=== PATIENT | female | born 1990 | race African-American/Black ===

== ENCOUNTER → 2018-04-13 11:35 | Observation (INO) ==
[2018-04-13 11:22] LABS: Amphetamine Screen,Urine Negative ng/mL (Cutoff=1000); Barbiturate Screen,Urine Negative ng/mL (Cutoff=200); Benzodiazepines Screen,Urine Negative ng/mL (Cutoff=200); Cannabinoid Screen,Urine Negative ng/mL (Cutoff = 50); Cocaine Screen,Urine Negative ng/mL (Cutoff= 300); Opiate Screen,Urine Negative ng/mL (Cutoff=300); Phencyclidine Screen,Urine Negative ng/mL (Cutoff=25)
--- NOTE | 2018-04-13 13:03 | Discharge Summary ---
Date of Encounter: 04/13/18 Time of Encounter: 11:25 - Discharge Diagnosis (1) 31 weeks gestation of Priority: Primary Status: Acute Comments: admitted for observation (2) Decreased movement Priority: Secondary Status: Acute Comments: anterior placenta After arriving to labor and delivery patient reported feeling movement Qualifiers: Fetus number: single or unspecified fetus Trimester: third trimester Qualified Code(s): O36.8130 - Decreased movements, third trimester, not applicable or unspecified (3) NST (non-stress test) reactive on surveillance Priority: Secondary Status: Acute Comments: FHR baseline 130 bpm moderate variability +15x15 accels no decels noted. Cat. 1 tracing. - Discharge Medications Home Medications: Prenat Vit Comb.10/Iron/FA/Dha [Vitafol-Ob+Dha Combo Pack] 1 each PO DAILY #90 combo..pkg 10/06/17 [Rx] Allergies/Adverse Reactions: 3 Allergy/AdvReac Type Severity Reaction Status Date / Time No Known Allergies Allergy Verified 04/13/18 10:26 Data Procedures and tests throughout hospitalization: Laboratory Tests 04/13/18 10:36 Urine Opiates Screen Negative Ur Barbiturates Screen Negative Ur Phencyclidine Scrn Negative Ur Amphetamines Screen Negative U Benzodiazepines Scrn Negative Urine Cocaine Screen Negative U Marijuana (THC) Screen Negative Ur Drug Screen Interp See Below Labs on day of discharge: Labs from last 24 hours 04/13/18 10:36 Urine Opiates Screen Negative Ur Barbiturates Screen Negative Ur Phencyclidine Scrn Negative Ur Amphetamines Screen Negative U Benzodiazepines Scrn Negative Urine Cocaine Screen Negative U Marijuana (THC) Screen Negative Ur Drug Screen Interp See Below Date of admission: 04/13/18 10:05 Primary care physician: Chucky Potter MD Discharging clinician: Fernanda Mixon Anticipated date of discharge: 04/13/18 - Patient Status Disposition: Home, Self-Care Condition: Good Functional capacity at discharge: independent ambulation - Discharge Instructions Follow Up With: Chucky Potter MD [Primary Care Provider] - Fernanda Mixon CNM [Non-Partnered Physician] - - Diet and Activity Activity: increase activity as tolerated Diet: regular diet Hospital Course ENGINEERING AIDE Hospital course: Patient is a 27 y/o at 31w5d presents to labor and delivery with complaints of decreased movement. Patient denies LOF, VB or contractions. Patient denies any complications with but does report she was told her placenta is in the front. Patient reports feeling movement while on the monitor. We discussed interventions to help baby move but encouraged patient to come in for observation for any concerns. Time Attestation: Total time spent providing and/or coordinating discharge services: Time Spent: Less than 30 minutes Exam - Constitutional General appearance IM: A&O X 3, pleasant, answers questions appropriately - Respiratory Respiratory exam: Present: CTAB - Cardiovascular Cardiovascular exam IM: Present: RRR, +S1, +S2 - GI/Abdominal GI/Abdominal exam IM: normal bowel sounds - Extremities Exam Extremities exam IM: Present: full ROM, normal capillary refill, normal inspection - Neurological Exam Neurological exam: alert, oriented X3, reflexes normal - VTE Reasons for not Prescribing Prophylaxis: Treatment not Indicated - Low risk for VTE
== END | disposition home or self-care (01) ==
LOC: 1NENULAB
PROVIDERS: ADMIT Advanced Practice Midwife; ATTEND Advanced Practice Midwife

== ENCOUNTER 2018-05-19 19:26 | Observation (INO) ==
[2018-05-19 20:17] LABS: Amphetamine Screen,Urine Negative ng/mL (Cutoff=1000); Barbiturate Screen,Urine Negative ng/mL (Cutoff=200); Benzodiazepines Screen,Urine Negative ng/mL (Cutoff=200); Cannabinoid Screen,Urine Negative ng/mL (Cutoff = 50); Cocaine Screen,Urine Negative ng/mL (Cutoff= 300); Opiate Screen,Urine Negative ng/mL (Cutoff=300); Phencyclidine Screen,Urine Negative ng/mL (Cutoff=25)
== END 2018-05-19 21:11 | disposition home or self-care (01) ==
LOC: 1NENULAB
PROVIDERS: ADMIT Advanced Practice Midwife; ATTEND Advanced Practice Midwife

== ENCOUNTER 2018-06-03 19:58 | Inpatient (IN) ==
[~2018-06-03 19:58] MED LIST: *HR* Nalbuphine 10 MG/ML AMPUL IVP PRN; Famotidine 20 MG/2 ML VIAL IVP PRN; Naloxone 0.4 MG/ML INJ IVP PRN; Ondansetron 4 MG/2 ML VIAL IVP PRN
[2018-06-03] MEDS ORDERED: Ringers Solution, Lactated 1,000 ML IVC SCH (20:00)
--- NOTE | 2018-06-03 20:04 | OB/GYN History & Physical ---
Date of Encounter: 06/03/18 Time of Encounter: 20:00 Assessment and Plan (1) 39 weeks gestation of Current visit: Yes Status: Acute admitted for delivery (2) Non-reassuring heart tones complicating , antepartum Current visit: Yes Status: Acute Admitted for delivery at this time Consult with Dr. Daryb completed: Patient care management discussed. History of Present Illness Chief complaint: contractions HPI: Ms. Sparks is a 28 year old female at 39 weeks gestation presents to labor and delivery with complaints of contractions that started earlier this morning and have progressively gotten stronger. Patient reports good movement. Patient denies LOF or VB. during labor evaluation patient had a late decel Discussed patient with Dr. Darby and decision was made to admit patient for delivery. An IV was quickly started, SVE with + scalp stim and O2 mask applied. Patient placed in left lateral position. Blood type: O+ Rubella:immune Hep B: Non-reactive GBS: Negative Past Med Surg Social Fam HX - Past Medical History Source: patient Medical history: no medical history Psychiatric history: no psych history - Past Surgical History Additional surgical history: meniscus repaired years ago, wisdom teeth removal - Social History Smoking Status: Never smoker Smokeless Tobacco Status: No Alcohol use: none Drug use: none Current living situation: Home - Independent Activity Level: Independent ambulation Recent Out of Country Travel Within the Last 8 Weeks: No Exposure or Possible Exposure to Illness During Travel: No - Family History Mother Adopted: No Living Status: Still Living Hx Family Cardiac Disorders: No Hx Family Respiratory Disorders: No Hx Family Cancer: No Hx Family GI Disorders: No Hx Family Genitourinary Disorders: No Hx Family Endocrine Disorder: No Hx Family Musculoskeletal Disorders: No Hx Family Neuromuscular Disorders: No Hx Family Neurologic Disorders: No Hx Family HEENT Disorders: No Hx Family Autoimmune Disorders: No Hx Family Reproductive Disorders: No Hx Family Psychosocial Disorders: No Hx Family Medical Disorders: No Obstetrical History - Pregnancies : 1 Para: 0 Term: 0 : 0 Ab's: 0 Livin Medications and Allergies Prenat Vit Comb.10/Iron/FA/Dha [Vitafol-Ob+Dha Combo Pack] 1 each PO DAILY #90 combo..pkg 10/06/17 [Rx] Allergy/AdvReac Type Severity Reaction Status Date / Time No Known Allergies Allergy Verified 04/13/18 10:26 Review of System OB - Constitutional Constitutional ROS IM: no chills, no fever(s), no headache(s) - Cardiovascular Cardiovascular: no chest pain, no palpitations, no pedal edema, no rapid heart rate, no syncope - Gastrointestinal Gastrointestinal: no abdominal pain, no diarrhea, no heartburn, no nausea, no vomiting - Genitourinary Genitourinary: no abnormal vaginal bleeding, no dysuria, no flank pain, no urinary frequency, no urinary hesitancy, no urinary urgency, no vaginal discharge, no vaginal odor, no vaginal pruritis Exam - Constitutional Constitutional: well developed, well nourished, average body habitus - HEENT HEENT: Normocephaly, Mucus Membranes Moist - Neck Neck exam: full ROM, supple - Lungs Respiratory exam: CTAB - Cardiovascular Cardiovascular exam: RRR, +S1, +S2 - Abdomen Abdomen: Present: bowel sounds normal, gravid, non tender - Extremities Extremities exam: full ROM, normal inspection Deep Tendon Reflex Grade: 2+ Normal - Cervix Dilation: 3 Effacement: 80 Station: -1 - Uterus Uterus exam: Present: normal size, normal contour - Anus/Rectum Anus/Rectum: Present: normal perianal skin - Comments Comments: FHR 125 bpm moderate variability + 15x15 accels late decels noted that resolved with intrauterine resuscitation. Contractions 2-3.[address] Darby aware of EFM tracing. POC care discussed at this time. Results All other labs normal. - VTE Reasons for not Prescribing Prophylaxis: Treatment not Indicated - Low risk for VTE
[2018-06-03 20:18] LABS: Hematocrit 36.9 % (35.3-44.9); Hemoglobin 12.8 g/dL (11.5-15.4); Immature Granulocytes % 0.3 % (0-4); Lymphocytes % 20.6 %; Mean Corpuscular HGB Conc 34.7 g/dL (31.6-35.5); Mean Corpuscular Hemoglobin 29.9 pg (28.0-33.3); Mean Corpuscular Volume 86.2 fL (83.0-100.0); Monocytes % 4.7 %; Platelet Count 260 K/mcL (140-400); Red Blood Count 4.28 M/mcL (3.82-4.97); Red Cell Distribution Width 14.2 % (11.5-14.5); Segmented Neutrophils % 73.7 %
[2018-06-03 20:19] LABS: Basophils % 0.3 %; Eosinophils # 0.1 K/mcL (0.0-0.6); Eosinophils % 0.4 %; Lymphocytes # 2.3 K/mcL (0.6-4.6); Monocytes # 0.5 K/mcL (0.0-1.3); Neutrophils # 8.4 K/mcL (1.6-8.9)
[2018-06-03] MEDS ORDERED: Bupivacaine-MPF 0.25% 10 ML VIAL ONE (20:57)
[2018-06-03] MEDS ORDERED: *HR* FentaNYL (PF) 100 MCG/2 ML VIAL ONE ×2 (20:57→21:35)
[2018-06-03] MEDS ORDERED: Epidural Premix (fent/bupiv) 110 ML EP SCH (21:00)
--- NOTE | 2018-06-03 21:01 | OB Labor Progress Note ---
Date of Encounter: 06/03/18 Time of Encounter: 20:58 Labor Progress Note - Subjective Subjective: Patient rates pain 10/10, waiting on epidural placement. IV fluids infusing. - Cervix Cervix: 4/90/0 - Heart Tones Heart Tones: 130 bpm moderate amount of variability no accels noted at this time. Prolonged decel noted. - [place]: 1-3 min apart - Interventions Interventions: SVE, AROM moderate amount of clear fluid noted. FSE placed without difficulty. Patient tolerated well. - Plan Plan: Dr. Darby updated on EFM tracing and interventions. No new orders or recommendations at this time. Anesthesia at bedside for epidural placement
[2018-06-03] MEDS ORDERED: Ketamine *HR* 500 MG/10 ML MDV ONE (21:36)
[2018-06-03] MEDS ORDERED: Dexamethasone 4 MG/ML VIAL ONE (21:45)
[2018-06-03] MEDS ORDERED: Ondansetron 4 MG/2 ML VIAL ONE (21:45)
[2018-06-03] MEDS ORDERED: *HR* Morphine Sulfate/PF 10 MG/10 ML AMPUL ONE (21:47)
--- NOTE | 2018-06-03 22:01 | Anesthesia Procedures ---
Date of Encounter: 06/03/18 Time of Encounter: 20:59 (lala end 2117) Procedures: Anesthesia - Epidural/Spinal Patient ID/Chart reviewed: Yes Patient examined: Yes OB Eval: Gestational age: 39 OB Eval: : 1 OB Eval: Hx Para: 0 OB Eval: Dilated at (cm): 4 OB Eval: Contractions: Non-stressed pattern Consent Obtained: Yes Site Prep: Aseptic Technique, Sterile prep and drape, Povidone-Iodine 1% Patient position: upright Amount of Local Anesthetic used: 3 Touhy Needle Gauge: 18 Touhy Needle Depth (cm): 5 Catheter Depth at Skin (cm): 8 Test Dose (1.5% Lido + Epi): Volume given (mls): 3 Test Dose Result: Negative Loading Dose: 0.25% Marcaine (mls): 8 Loading Dose: Fentanyl (mcg): 100 Loading Dose Administered: Thru Catheter Infusion Rate (mls/hr): 14 Interspace Used: L4-L5 Loss of Resistance ([place]): Yes Blood: No CSF: No Paresthesia: No Vitals + FHT's: Epidural placed with ease VSS FHTS see nursing notes.
--- NOTE | 2018-06-03 22:06 | Anesthesia Evaluation PreOp ---
Date of Encounter: 06/03/18 Time of Encounter: 20:59 - Past History Planned Operation: lala Cardiac History: Denies any Significant Hx Pulmonary History: Denies Any Significant HX PALLET SORTER History: Denies Any Significant HX Other Medical History: Denies Any Significant HX Anesthesia History: No Prior Anesthetic Complications : Yes Test: Positive Alcohol Use: none Drug use: none Medications and Allergies Prenat Vit Comb.10/Iron/FA/Dha [Vitafol-Ob+Dha Combo Pack] 1 each PO DAILY #90 combo..pkg 10/06/17 [Rx] Allergy/AdvReac Type Severity Reaction Status Date / Time No Known Allergies Allergy Verified 06/03/18 20:30 - Meds/Allergy Pre-op Review Medications Reviewed: Yes Allergies Reviewed: Yes Beta Blockers on Current Med List: No Anesthesia Results - Labs 06/03/18 19:59 Anesthesia Exam - HEENT Pupil (Motor): Pupils equal Mallampati: II Teeth: Normal Oral Opening: Greater than 3 - PALLET SORTER LOC: Oriented PALLET SORTER Motor: Normal RUE, Normal LUE, Normal RLE, Normal LLE, Normal Face PALLET SORTER Sensory: Normal: RUE, LUE, RLE, LLE, Face - Cardiac Rhythm: Regular Murmur: None JVD: No Carotid Bruit: No - Pulmonary Breath Sounds: bilateral Clear Respiratory Effort: Symmetrical Anesthesia Assess/Plan ASA Score: 2 Modified [place] Scale for Level of Consciousness: Cooperative, oriented, and tranquil Anesthetic Plan: Regional Autologous Blood: No Monitoring Plan: Standard Monitors
[2018-06-03] MEDS ORDERED: *HR* Morphine 2 MG/ML SYRINGE IVP PRN (22:08)
[2018-06-03] MEDS ORDERED: *HR* Meperidine 25 MG/ML SYRINGE IVP PRN (22:08)
[2018-06-03] MEDS ORDERED: Acetaminophen IV 1,000 MG/100 ML INFUS..BTL IVPB ONE (22:08)
--- NOTE | 2018-06-03 22:11 | Event Note ---
Date of Encounter: 06/03/18 Time of Encounter: 21:23 FHR decel noted after epidural placement, anesthesia still at bedside. RN placing coreas catheter. SVE /-1. Dr. Darby called to come to L&D for for Emergent section. Patient educated on reason for primary c/s and transfer of care to Physician for delivery at this time.
[2018-06-03] MEDS ORDERED: *HR* Oxytocin 10 UNIT/ML VIAL IM ONE (22:13)
[2018-06-03] MEDS ORDERED: Oxytocin 20 units/ LR 1000 mL 20 UNIT/1,000 ML BAG IVC ONE (22:17)
[2018-06-03] MEDS ORDERED: Ringers Solution, Lactated 2,000 ML ONE (22:18)
--- NOTE | 2018-06-03 22:19 | OB/GYN Procedure Note ---
Section - Date of procedure: 06/03/18 Preop diagnosis: other (recurrent late decels remote from delivery) Post-op diagnosis: same Procedure: primary low transverse Surgeon: Seth Bone Blood Loss: 150 Was there an assistant chief nursing officer present: Yes Grants Analyst: Iman Lea Anesthesia Type: Epidural section complications: none Disposition: L&D Recovery Room Specimens: Placenta, Cord segment, Cord blood - Narrative Narrative: The patient was brought to the operating room with satisfactory epidural anesthesia. The abdomen was prepped with betadine and draped in a sterile fashion. A Pfannenstiel incision was made and carried sharply down to the level of fascia. The fascia was incised transversely. At this point, the patient started complaining of pain so I stopped and Anesthesia had to sedate her before I continued. The fascia was dissected away from the underlying rectus muscles. With sharp and blunt dissection, the rectus muscles were divided in the midline. The peritoneum was entered bluntly. The bladder retractor was placed to protect the bladder. The lower uterine segment was entered sharply with a scalpel. The incision was manually extended. The 's head was pulled up and delivered as were the shoulders and body. The mouth and oropharynx were suctioned. The cord was clamped and cut. The was passed off to the waiting high school librarian in satisfactory condition. APGARS 8/9. Weight 2137g, nuchal cord x 1, 3VC. The placenta was extracted completely and found to be intact. The uterus was explored and found to be empty. The uterus was delivered through the abdominal incision and massaged vigorously. Intravenous Pitocin was administered. Clamps were placed about the margins of the uterine incision, which was closed primar faiza with a running locking stitch of 0 Vicryl with adequate hemostasis. Secondary running locking stitch was placed for extra strength to the wound. The uterus was returned to its proper anatomic position in the abdomen. The fascia was closed with a simple running stitch of 0 vicryl. The subcutaneous tissue was closed with 3-0 vicryl. The skin was closed with running subcuticular stitch of 4-0 vicryl. Uterus was expressed of its contents. EBL 150. Patient was brought to the recovery room in satisfactory condition.
[2018-06-04] MEDS ORDERED: Oxytocin 20 units/ LR 1000 mL 20 UNIT/1,000 ML BAG IVC SCH (01:00)
[2018-06-04] MEDS ORDERED: Sennosides 8.6 MG TABLET PO PRN (01:00)
[2018-06-04] MEDS ORDERED: *HR* HYDROmorphone 20 MG/20 ML PCA IVC PRN (01:00)
[2018-06-04] MEDS ORDERED: Metoclopramide 10 MG/2 ML VIAL IVP PRN (01:00)
[2018-06-04] MEDS ORDERED: Ondansetron 4 MG/2 ML VIAL IVP PRN (01:00)
[2018-06-04] MEDS ORDERED: Simethicone 80 MG TAB.CHEW PO PRN (01:00)
[2018-06-04] MEDS: Prenatal Vit/FA 1 EACH TABLET PO SCH (08:02)
--- NOTE | 2018-06-04 08:49 | OB/GYN Progress Note ---
Date of Encounter: 06/04/18 Time of Encounter: 08:46 - Assessment and Plan (1) Status post delivery Current Visit: Yes Status: Acute Meeting milestones for 14 hrs post op. Will discontinue INSTRUCTOR NURSE and switch to oral Percocet Coreas discontinued this AM. Pain well controlled at this time. Anticipate discharge tomorrow afternoon/evening. (2) Breast feeding status of mother Current Visit: Yes Status: Acute support as needed. Subjective - Subjective Principal diagnosis: Status post delivery Interval history: Patient is doing well this morning. States she is tired but otherwise tolerating pain well. Coreas discontinued this AM and no void at this time. She states b reastfeeding is going well. Discussed with patient plan to discontinue INSTRUCTOR NURSE and begin oral pain medications and she is agreeable to this plan. Patient reports: appetite normal, pain well controlled, other (coreas discontinued this AM. No void yet.) [place]: doing well, nursing well Objective - Vital Signs Latest vital signs: Vital Signs Temp Pulse Resp BP Pulse Ox 06/04/18 07:47 98.4 F 89 18 107/64 97 06/04/18 04:00 98 F 87 14 121/68 97 06/04/18 02:00 98.5 F 89 14 105/52 96 06/04/18 01:30 98.5 F 98 16 118/74 96 06/04/18 00:55 98.7 F 88 16 117/73 97 Intake and Output 06/03/18 06/04/18 06/04/18 23:59 07:59 15:59 Output Total 400 / 400 Balance -400 / -400 Output: Catheter 400 / 400 Other: Weight 92.079 kg 90.7 kg Patient Weight 06/04/18 23:59 Weight 90.7 kg - Exam Lungs: bilateral: normal Chest: Normal S1, Normal S2 Extremities: Present: normal Abdomen: Present: normal appearance, soft Incision: Present: dressed Uterus: Present: normal, firm Fundal Height: 0 (u/u) - Labs Labs: Laboratory Results - last 24 hr 06/03/18 19:59 WBC 11.3 H RBC 4.28 Hgb 12.8 Hct 36.9 MCV 86.2 MCH 29.9 MCHC 34.7 RDW 14.2 Plt Count 260 MPV 10.0 Immature Gran % 0.3 Seg Neutrophils % 73.7 Lymphocytes % 20.6 Monocytes % 4.7 Eosinophils % 0.4 Basophils % 0.3 Neutrophils # 8.4 Lymphocytes # 2.3 Monocytes # 0.5 Eosinophils # 0.1 Basophils # 0.0
[2018-06-04 11:22] LABS: Basophils % 0.1 %; Hematocrit 28.1 % (35.3-44.9); Immature Granulocytes % 0.4 % (0-4); Lymphocytes # 1.4 K/mcL (0.6-4.6); Lymphocytes % 12.8 %; Mean Corpuscular HGB Conc 33.5 g/dL (31.6-35.5); Mean Corpuscular Hemoglobin 29.3 pg (28.0-33.3); Mean Corpuscular Volume 87.5 fL (83.0-100.0); Mean Platelet Volume 9.8 fL (9.4-12.4); Monocytes # 0.6 K/mcL (0.0-1.3); Monocytes % 5.5 %; Neutrophils # 8.9 K/mcL (1.6-8.9); Platelet Count 216 K/mcL (140-400); Red Blood Count 3.21 M/mcL (3.82-4.97); Segmented Neutrophils % 81.2 %
[2018-06-04 11:32] LABS: Hemoglobin 9.4 g/dL (11.5-15.4)
[2018-06-04] MEDS: *HR* OxyCODONE/APAP 5/325 TABLET PO PRN ×2 (11:38→22:58)
[2018-06-04] MEDS: Ibuprofen 600 MG TABLET PO PRN ×2 (16:17→22:58)
[2018-06-05] MEDS: *HR* OxyCODONE/APAP 5/325 TABLET PO PRN (07:08)
[2018-06-05] MEDS: Ibuprofen 600 MG TABLET PO PRN (07:08)
[2018-06-05] MEDS: Prenatal Vit/FA 1 EACH TABLET PO SCH (08:11)
--- NOTE | 2018-06-05 09:06 | Discharge Summary ---
Date of Encounter: 06/05/18 Time of Encounter: 09:03 - Discharge Diagnosis (1) 39 weeks gestation of Priority: Secondary Status: Acute (2) Non-reassuring heart tones complicating , antepartum Priority: Secondary Status: Acute (3) Status post primary low transverse section Priority: Primary Status: Acute Comments: continue routine postop/ care discharge home today follow up with Dr. Darby in 2 weeks for incision check follow up with CNM in 6 weeks (4) Breast feeding status of mother Priority: Secondary Status: Acute Comments: support prn - Discharge Medications Prescriptions: OxyCODONE/APAP 5/325 [Percocet 5/325 MG] 1 each PO Q4HR PRN 5 Days #30 tablet PRN Reason: Moderate pain 4-6 Ibuprofen [Motrin] 600 mg PO Q6HR PRN #60 tablet PRN Reason: Cramping Docusate [Colace] 100 mg PO BID #30 capsule Home Medications: Prenat Vit Comb.10/Iron/FA/Dha [Vitafol-Ob+Dha Combo Pack] 1 each PO DAILY #90 combo..pkg 10/06/17 [Rx] Docusate [Colace] 100 mg PO BID #30 capsule 06/05/18 [Rx] Ferrous Sulfate 325 mg PO DAILY tablet 06/05/18 [Rx] Ibuprofen [Motrin] 600 mg PO Q6HR PRN #60 tablet 06/05/18 [Rx] OxyCODONE/APAP 5/325 [Percocet 5/325 MG] 1 each PO Q4HR PRN 5 Days #30 tablet 06/05/18 [Rx] Allergies/Adverse Reactions: Allergy/AdvReac Type Severity Reaction Status Date / Time No Known Allergies Allergy Verified 06/03/18 20:30 Data Procedures and tests throughout hospitalization: Laboratory Tests 06/03/18 06/04/18 19:59 11:10 WBC 11.3 H 11.0 RBC 4.28 3.21 L Hgb 12.8 9.4 L D Hct 36.9 28.1 L MCV 86.2 87.5 MCH 29.9 29.3 MCHC 34.7 33.5 RDW 14.2 14.0 Plt Count 260 216 MPV 10.0 9.8 Immature Gran % 0.3 0.4 Seg Neutrophils % 73.7 81.2 Lymphocytes % 20.6 12.8 Monocytes % 4.7 5.5 Eosinophils % 0.4 0.0 Basophils % 0.3 0.1 Neutrophils # 8.4 8.9 Lymphocytes # 2.3 1.4 Monocytes # 0.5 0.6 Eosinophils # 0.1 0.0 Basophils # 0.0 0.0 Labs on day of discharge: Labs from last 24 hours 06/04/18 11:10 WBC 11.0 RBC 3.21 L Hgb 9.4 L D Hct 28.1 L MCV 87.5 MCH 29.3 MCHC 33.5 RDW 14.0 Plt Count 216 MPV 9.8 Immature Gran % 0.4 Seg Neutrophils % 81.2 Lymphocytes % 12.8 Monocytes % 5.5 Eosinophils % 0.0 Basophils % 0.1 Neutrophils # 8.9 Lymphocytes # 1.4 Monocytes # 0.6 Eosinophils # 0.0 Basophils # 0.0 - Impressions ITS Impressions KUB X-Ray 06/03/18 21:44 IMPRESSION: Negative study. D/ / Rut Marcano Cha, MD / Rut Marcano Cha, MD Interpreting Provider: Rut Marcano Cha, MD Date of admission: 06/03/18 19:58 Primary care physician: PCP NONE Discharging clinician: Fernanda Mixon Anticipated date of discharge: 06/05/18 - Patient Status Disposition: Home, Self-Care Condition: Good Functional capacity at discharge: independent ambulation - Discharge Instructions Follow Up With: NONE,PCP [Primary Care Provider] - Seth Darby MD [Partnered Physician] - - Diet and Activity Activity: increase activity as tolerated Diet: regular diet Hospital Course Procedures: oarrs report reviewed Reason for admission: active labor Delivery: section Episiotomy: none Laceration: none Other procedures: none complications: none Discharge diagnosis: IUP at term delivered baby: male (breast feeding) Time Attestation: Total time spent providing and/or coordinating discharge services: Time Spent: Less than 30 minutes - VTE Reasons for not Prescribing Prophylaxis: Treatment not Indicated - Low risk for VTE Documentation of Mechanical Device: Intermittent pneumatic compression device Exam - Constitutional Vitals: Temp Pulse Resp BP Pulse Ox 97.6 F 92 20 109/74 99 06/05/18 08:02 06/05/18 08:02 06/05/18 08:02 06/05/18 08:02 06/05/18 08:02 General appearance IM: A&O X 3, pleasant, answers questions appropriately - Respiratory Respiratory exam: Present: CTAB - Cardiovascular Cardiovascular exam IM: Present: RRR, +S1, +S2 - GI/Abdominal GI/Abdominal exam IM: normal bowel sounds - Uterine Tone: Firm Uterus Position: 2 Fingers Below Umbilicus, Midline - Extremities Exam Extremities exam IM: Present: full ROM, normal capillary refill, normal inspection - Neurological Exam Neurological exam: alert, oriented X3, reflexes normal
[2018-06-05 12:12] VITALS: BP 120/67
== END 2018-06-05 15:04 | disposition home or self-care (01) | DRG 788 ==
LOC: 1NENULAB → 1NENUOBS 06-04 00:57
PROVIDERS: ADMIT Advanced Practice Midwife; ATTEND Advanced Practice Midwife